=== PATIENT | male | born 1990 | race Caucasian/White ===

== ENCOUNTER 2018-05-20 16:13 | Emergency (ER) | payer MEDICARE, OTHER, MEDICAID ==
[~2018-05-20] VITALS: Ht 175.3 cm; Wt 75.7 kg
[2018-05-20 16:19] VITALS: BP 115/73
[2018-05-20] MEDS ORDERED: METH-360 PO (16:28)
[2018-05-20] MEDS ORDERED: IBUP-1985 PO (16:28)
[2018-05-20] MEDS ORDERED: ketorolac tromethamine 15mg/ml inj. IM ONE (16:30)
[2018-05-20] MEDS ORDERED: diazepam 5mg tablet PO ONE (16:30)
== END 2018-05-20 16:55 | disposition home or self-care (01) ==
LOC: ER 16:14
DX: M54.5 Low back pain (principal); R07.81 Pleurodynia; G89.29 Other chronic pain; M54.9 Dorsalgia, unspecified; Z88.8 Allergy status to other drugs, medicaments and biological substances
CPT/HCPCS: 96372; 99283; J1885

== ENCOUNTER 2019-02-22 13:22 | Emergency (ER) | payer MEDICARE, MEDICAID ==
[~2019-02-22] VITALS: Ht 175.3 cm; Wt 65.9 kg
[~2019-02-22 13:22] MED LIST: IBUP-1985 PO; METH-360 PO
[2019-02-22 13:49] VITALS: BP 119/78
[2019-02-22] MEDS ORDERED: IBUP-1984 PO (14:35)
== END 2019-02-22 15:00 | disposition home or self-care (01) ==
LOC: ER 13:22
DX: S60.041A Contusion of right ring finger without damage to nail, initial encounter (principal); G89.29 Other chronic pain; Z88.8 Allergy status to other drugs, medicaments and biological substances; Z79.899 Other long term (current) drug therapy; W21.07XA Struck by softball, initial encounter; Y93.64 Activity, baseball; Y92.89 Other specified places as the place of occurrence of the external cause; Y99.8 Other external cause status
CPT/HCPCS: 29130; 73130; 99283

== ENCOUNTER 2019-09-12 19:58 | Emergency (ER) | payer MEDICARE, MEDICAID ==
[~2019-09-12] VITALS: Ht 175.3 cm; Wt 65.9 kg
[2019-09-12 20:04] VITALS: BP 116/79
== END 2019-09-12 22:48 | disposition home or self-care (01) ==
LOC: ER 22:43
DX: S63.8X1A Sprain of other part of right wrist and hand, initial encounter (principal); F10.99 Alcohol use, unspecified with unspecified alcohol-induced disorder; G89.29 Other chronic pain; Z98.890 Other specified postprocedural states; Z88.8 Allergy status to other drugs, medicaments and biological substances; Z79.899 Other long term (current) drug therapy; W01.0XXA Fall on same level from slipping, tripping and stumbling without subsequent striking against object, initial encounter; Y93.89 Activity, other specified; Y92.89 Other specified places as the place of occurrence of the external cause; Y99.8 Other external cause status; Y90.9 Presence of alcohol in blood, level not specified
CPT/HCPCS: 73130; 99283